=== PATIENT | female | born 1980 | race Two or more races ===

== ENCOUNTER 2021-04-21 21:08 | Emergency (ER) | payer MEDICAID, OTHER ==
[~2021-04-21] VITALS: Ht 170.2 cm; Wt 90.7 kg
[2021-04-21 21:16] VITALS: BP 150/93
== END 2021-04-21 21:46 | disposition left against medical advice (07) ==
LOC: EDBD 21:08 → ER 21:12
DX: R51.9 Headache, unspecified (principal); Z53.21 Procedure and treatment not carried out due to patient leaving prior to being seen by health care provider
CPT/HCPCS: 93005

== ENCOUNTER 2023-11-25 18:49 | Emergency (ER) | payer MEDICAID ==
[~2023-11-25] VITALS: Ht 162.6 cm; Wt 109.8 kg
[2023-11-25 20:50] LABS: Urine Bacteria FEW /hpf (None Seen); Urine Blood Negative /uL (Negative); Urine Clarity Clear (Clear); Urine Color Yellow (Yellow); Urine Mucus FEW (None Seen); Urine Protein, UAD TRACE (Negative); Urine Specific Gravity 1.025 (1.001-1.035); Urine Urobilinogen Normal (Negative); Urine WBC 1 /hpf (0 - 5); Urine pH 6.5 (5.0-9.0)
[2023-11-25 21:11] LABS: Basophils # (auto) 0.1 10 ^3/uL (0-0.2); Basophils % (auto) 0.8 % (0.0-2.0); Eosinophils # (auto) 0.2 10 ^3/uL (0-0.8); Eosinophils % (auto) 1.5 % (0.0-7.0); Hematocrit 38.8 % (36.0-46.0); Hemoglobin 13.3 g/dL (12.2-16.2); Lymphocytes # (auto) 3.1 10 ^3/uL (0.4-5.4); Lymphocytes % (auto) 29.6 % (10.0-50.0); Mean Corpuscular Hgb Conc. 34.2 g/dL (32.0-36.0); Mean Corpuscular Volume 84.8 fL (80.0-100.0); Monocytes # (auto) 0.7 10 ^3/uL (0-1.3); Monocytes % (auto) 6.3 % (0.0-12.0); Neutrophils # (auto) 6.4 10 ^3/uL (1.6-8.6); Neutrophils % (auto) 61.8 % (37.0-80.0); Nucleated Red Blood Cells % 0.1 %; Red Blood Cells 4.58 10^6/uL (4.0-5.20); Red Cell Distribution Width 13.5 % (11.8-14.3); White Blood Cell 10.4 10^3/uL (4.4-10.8)
[2023-11-25 21:27] LABS: Alanine Aminotransferase 27 U/L (7-40); Albumin 4.6 g/dL (3.2-4.8); Alkaline Phosphatase 85 U/L (46-116); Anion Gap 4 (5-15); Aspartate Aminotransferase 14 U/L (13-40); BUN/Creatinine Ratio 15.6 (10.0-20.0); Bilirubin, Total 1.1 mg/dL (0.2-1.0); Blood Urea Nitrogen 10 mg/dL (9-23); Carbon Dioxide 29 mmol/L (20-30); Chloride 104 mmol/L (98-107); Glucose 101 mg/dL (74-106); Lipase 32 U/L (12-53); Potassium 3.9 mmol/L (3.5-5.1); Sodium 137 mmol/L (136-145)
[2023-11-25 21:28] LABS: Total Protein 7.9 g/dL (5.7-8.2)
[2023-11-25 21:54] VITALS: BP 149/97; PULSE 76; RESP 20; TEMP 97.9; O2SAT 96
[2023-11-25] MEDS: ONDANSETRON ODT 4 MG TAB PO ONE (22:04)
[2023-11-25] MEDS: HYDROcodone-ACET 10/325MG TAB PO ONE (22:04)
[2023-11-25] MEDS ORDERED: IBUP-1455 PO (23:03)
[2023-11-25] MEDS ORDERED: OXY5T PO (23:03)
[2023-11-25] MEDS ORDERED: ZOFR4T PO (23:03)
[2023-11-25] MEDS ORDERED: AUG875T PO (23:03)
[2023-11-25] MEDS: AMOXICILLIN/CLAVUL 875 MG TAB PO ONE (23:24)
== END 2023-11-25 23:27 | disposition home or self-care (01) ==
LOC: ER 18:52
DX: K57.92 Diverticulitis of intestine, part unspecified, without perforation or abscess without bleeding (principal); K76.0 Fatty (change of) liver, not elsewhere classified; R16.0 Hepatomegaly, not elsewhere classified; Z88.6 Allergy status to analgesic agent
CPT/HCPCS: 36415; 74176; 80053; 81001; 83605; 83690; 84484; 85025; 99284; Q0162